=== PATIENT | female | born 1985 | race Caucasian/White ===

== ENCOUNTER 2019-04-13 06:10 | Emergency (ER) | payer MEDICAID ==
[~2019-04-13] VITALS: Ht 167.6 cm; Wt 55.0 kg
[~2019-04-13 06:10] MED LIST: BUSP5TAB3 PO; CEPH250T PO; NITR100C6 PO; PREN1TAB79 PO
[2019-04-13 06:18] VITALS: BP_DIAS 73
[2019-04-13] MEDS ORDERED: TETanus/Pertussis (Acell)/Diphther VAC/PF (Tdap-Adult) 0.5ml syringe IMVAC ONE (06:30)
[2019-04-13] MEDS ORDERED: azithromycin 250mg tablet PO ONE (06:30)
[2019-04-13] MEDS ORDERED: ibuprofen tablet 400 MG TABLET PO ONE (06:30)
[2019-04-13] MEDS ORDERED: CefTRIAXone 1000mg IM Kit (w/lidocaine diluent) IM ONE (06:30)
[2019-04-13] MEDS ORDERED: IBUP-1985 PO (06:55)
--- NOTE | 2019-04-13 07:48 | NUR ---
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
[2019-04-13 08:09] VITALS: BP_SYST 113
== END 2019-04-13 09:27 | disposition home or self-care (01) ==
LOC: ER 06:11
DX: M25.531 Pain in right wrist (principal); M25.532 Pain in left wrist; M79.89 Other specified soft tissue disorders; F15.90 Other stimulant use, unspecified, uncomplicated; Z88.5 Allergy status to narcotic agent; Z79.899 Other long term (current) drug therapy
CPT/HCPCS: 36415; 87491; 87591; 90471; 90715; 96372; 99283; J0696

== ENCOUNTER 2021-11-27 22:09 | Emergency (ER) | payer MEDICAID ==
[~2021-11-27] VITALS: Ht 167.6 cm; Wt 50.0 kg
[~2021-11-27 22:09] MED LIST changes: +IBUP-1985 PO
[2021-11-27 22:21] VITALS: BP 125/78
--- NOTE | 2021-11-28 01:33 | NUR ---
NOT IN LOBBY
== END 2021-11-28 03:24 | disposition left against medical advice (07) ==
LOC: ER 22:10
DX: F41.9 Anxiety disorder, unspecified (principal); Z53.21 Procedure and treatment not carried out due to patient leaving prior to being seen by health care provider

== ENCOUNTER 2022-08-16 11:55 | Emergency (ER) | payer MEDICAID ==
--- NOTE | 2022-08-16 12:15 | NUR ---
CALLED PT TO TRIAGE AND NO ANSWER, NOT INSIDE THE LOBBY
--- NOTE | 2022-08-16 12:26 | NUR ---
CALLED PT A SECOND TIME, NO ANSWER, AND NOT INSIDE THE LOBBY
--- NOTE | 2022-08-16 12:50 | NUR ---
ATTEMPTED TO TRIAGE THE PT A THIRD TIME AND CALLED FOR PT NO ANSWER AND NOT IN THE LOBBY
== END 2022-08-16 12:56 | disposition left against medical advice (07) ==
LOC: ER 11:56
DX: Z00.8 Encounter for other general examination (principal); Z53.21 Procedure and treatment not carried out due to patient leaving prior to being seen by health care provider